=== PATIENT | male | born 1975 | race Caucasian/White ===

== ENCOUNTER → 2016-10-04 | Outpatient (CLI) | payer OTHER ==
--- NOTE | 2016-10-04 11:08 | DX ---
Left Knee, 3 Views Clinical Indications: Postoperative follow-up; comparison previous study March 22, 2016. Findings: Postoperative changes of partial left knee arthroplasty are noted with intact hardware in t he medial compartment. Degenerative changes are seen in the patellofemoral compartment. Impression: Stable postoperative changes of partial left knee arthroplasty.
== END ==
LOC: BMCIMAGING 10:22
PROVIDERS: ATTEND Orthopaedic Surgery
DX: Z96.652 Presence of left artificial knee joint (principal)